=== PATIENT | female | born 1990 | race Two or more races ===

== ENCOUNTER 2020-12-24 15:08 | Emergency (ER) | payer SELFPAY ==
[~2020-12-24] VITALS: Ht 154.9 cm; Wt 77.0 kg
[2020-12-24 15:52] VITALS: BP 158/75
[2020-12-24] MEDS ORDERED: AMOX1TAB61 PO (16:24)
--- NOTE | 2020-12-24 16:24 | PHYS DOC ---
Past Medical History Past Surgical History: No Surgical History (GRUPO EGAN COFFEE MACHINE TECHNICIAN) General Adult EDM: Chief Complaint: ANIMAL BITE HPI: HPI: Patient is a 30 year old male who presents the ED today with dog bite to the right upper extremity that occurred today. Patient got bit by a stray dog. [employer] line used for [employer] (GRUPO EGAN APRN) Review of Systems: Review of Systems: Constitutional: Denies fever or chills. [] Musculoskeletal: Denies back pain or joint pain. [] Integument: Reports dog bite to the right upper extremity Neurologic: Denies headache, focal weakness or sensory changes. [] Psychiatric: Denies depression or anxiety. [] (GRUPO EGAN COFFEE MACHINE TECHNICIAN) Heart Score: C/O Chest Pain: N/A Risk Factors: Risk Factors: DM, Current or recent (<one month) smoker, HTN, HLP, family histo ry of CAD, obesity. Risk Scores: Score 0 - 3: 2.5% MACE over next 6 weeks - Discharge Home Score 4 - 6: 20.3% MACE over next 6 weeks - Admit for Clinical Observation Score 7 - 10: 72.7% MACE over next 6 weeks - Early Invasive Strategies (GRUPO EGAN COFFEE MACHINE TECHNICIAN) Allergies: Allergies: Allergies Coded Allergies Type Severity Reaction Last Updated Verified No Known Drug Allergies 12/24/20 No (GRUPO EGAN COFFEE MACHINE TECHNICIAN) Physical Exam: PE: Constitutional: Well developed, well nourished, no acute distress, non-toxic appearance. [] Skin: Right upper extremity around the biceps with a puncture wound roughly 0.3 x 0.3 cm consistent with a dog bite. Neurovascular exam is intact to the right upper extremity. Back: No tenderness, no CVA tenderness. [] Extremities: No tenderness, no cyanosis, no clubbing, ROM intact, no edema. [] Neurologic: Alert and oriented X 3, normal motor function, normal sensory function, no focal deficits noted. [] Psychologic: Affect normal, judgement normal, mood normal. [] (GRUPO EGAN COFFEE MACHINE TECHNICIAN) Current Patient Data: Vital Signs: Vital Signs Date Time Temp Pulse Resp B/P (MAP) Pulse Ox O2 Delivery O2 Flow Rate FiO2 12/24/20 15:52 98.6 102 16 158/75 (102) 98 Room Air 98.6 (GRUPO EGAN Madelyn CARRASQUILLO) EKG: EKG: [] (GRUPO EGAN Madelyn CARRASQUILLO) Radiology/Procedures: Radiology/Procedures: [] (TRACEYGRUPO PAGAN Madelyn CARRASQUILLO) Course & Med Decision Making: Course & Med Decision Making Pertinent Labs and Imaging studies reviewed. (See chart for details) This is a 30-year-old female patient presenting to the ED today with dog bite to the right upper extremity. Dog bite is very superficial. Tetanus is up-to-date. Discharged on Augmentin. Instructed to wash the area and apply Neosporin to the area twice a day. Provided return precautions. (JIGNESHGRUPO Madelyn CARRASQUILLO) Dragon Disclaimer: Dragon Disclaimer: This electronic medical record was generated, in whole or in part, using a voice recognition dictation system. (JIGNESHGRUPO Madelyn CARRASQUILLO) Departure Departure Impression: Primary Impression: Dog bite of upper extremity Qualified Codes: S41.151A - Open bite of right upper arm, initial encounter; W54.0XXA - Bitten by dog, initial encounter Disposition: HOME / SELF CARE / HOMELESS Condition: STABLE Referrals: NO PCP (PCP) ROLF BAUMAN MD please follow up for OB care Patient Instructions: Animal Bite, [id number] Additional Instructions: You have a dog bite to the right upper extremity, please wash the area once or twice a day with regular soap and water and apply Neosporin to the area twice a day. Take the prescribed antibiotics until completed. Please come back to the ED at any point wound condition worsens including but not limited to yellow purulent drainage from the area, increased warmth, increased redness or any other concerning symptoms. Scripts Amoxicillin/Potassium Clav (AUGMENTIN 875-125 TABLET) 1 Each Tablet 1 TAB PO BID for 10 Days, #20 TAB 0 Refills Prov: GRUPO EGAN Madelyn CARRASQUILLO 12/24/20 Attending Signature Attending Signature I have reviewed the PA/BILL OF LADING CLERK's note and plan of care. I was available for cons ultation as needed during the patient's visit in the emergency department. I agree with the clinical impression, plan, and disposition. (ROLF BARNETT DO) GRUPO EGAN APRN Dec 24, 2020 16:24 ROLF BARNETT DO Dec 24, 2020 17:06
== END 2020-12-24 16:39 | disposition home or self-care (01) ==
LOC: ER 15:08
DX: S41.131A Puncture wound without foreign body of right upper arm, initial encounter (principal); W54.0XXA Bitten by dog, initial encounter; Y93.89 Activity, other specified; Y92.89 Other specified places as the place of occurrence of the external cause; Y99.8 Other external cause status
CPT/HCPCS: 99283